=== PATIENT | female | born 1980 | race Caucasian/White ===

== ENCOUNTER 2019-06-05 17:13 | Outpatient (CLI) | payer OTHER, SELFPAY ==
[2019-06-05 18:05] LABS: Basophils Percent Auto 0.3 % (0.2-1.2); Eosinophils Absolute Auto 0.1 K/mm3 (0-0.3); Eosinophils Percent Auto 2.7 % (0-4.4); Hematocrit 40.9 % (37.0-47.0); Hemoglobin 13.4 g/dL (12.0-15.0); Lymphocytes Absolute Auto 1.67 K/mm3 (0.9-3.2); Lymphocytes Percent Auto 44.8 % (18.3-44.2); Mean Corpuscular HGB Conc 32.8 g/dl (32-36); Mean Corpuscular Hemoglobin 29.8 pg (26-34); Mean Corpuscular Volume 90.9 fl (80-100); Mean Platelet Volume 9.8 fl (7.4-10.4); Monocytes Absolute Auto 0.3 K/mm3 (0.1-0.6); Monocytes Percent Auto 8.3 % (2.6-8.5); Neutrophils Absolute Auto 1.6 K/mm3 (1.3-6.7); Neutrophils Percent Auto 43.9 % (45.5-73.1); Platelet Count Result 172 k/mm3 (150-375); Red Cell Distribution Width 12.9 % (11.5-14.5); White Blood Count 3.7 K/mm3 (4.5-10.0)
[2019-06-05 18:14] LABS: Hemoglobin A1C 5.1 % (<5.7)
[2019-06-05 18:23] LABS: Alanine Aminotransferase 18 U/L (4-35); Albumin Level 4.7 g/dL (3.5-5.1); Alkaline Phosphatase 69 U/L (38-126); Aspartate Amino Transferase 27 U/L (14-36); Bilirubin,Total 0.3 mg/dL (0.2-1.3); Blood Urea Nitrogen 11 mg/dL (7-17); Calcium 9.5 mg/dL (8.4-10.2); Carbon Dioxide 28 mmol/L (22-30); Chloride 103 mmol/L (98-107); Estimated Glomerular Filt Rate > 60; Glucose 86 mg/dL (65-105); Potassium 3.2 mmol/L (3.4-5.0); Sodium 142 mmol/L (137-145)
[2019-06-05 18:40] LABS: Thyroid Stimulating Hormone 0.951 uIU/mL (0.465-4.680)
[2019-06-05 20:24] LABS: Free T4 Free Thyroxine 0.81 ng/mL (0.78-2.19)
[2019-06-09 21:21] LABS: LH 8.3 mIU/mL (***); Progesterone 4.7 ng/mL (***); Prolactin 5.8 ng/mL (***)
== END 2019-06-05 17:14 | disposition home or self-care (01) ==
LOC: ANHLAB 17:16
PROVIDERS: Visit Provider Obstetrics & Gynecology
DX: N92.6 Irregular menstruation, unspecified (principal)
CPT/HCPCS: 36415; 80053; 83001; 83002; 83036; 84144; 84146; 84439; 84443; 85025

== ENCOUNTER 2019-08-05 16:48 | Outpatient (CLI) | payer OTHER, SELFPAY | END 2019-08-05 16:49 | disposition home or self-care (01) | PROVIDERS: Visit Provider Obstetrics & Gynecology | DX: N97.9 Female infertility, unspecified (principal) | CPT/HCPCS: 36415; 84144 ==

== ENCOUNTER 2019-09-02 15:58 | Outpatient (CLI) | payer OTHER, SELFPAY ==
[2019-09-06 07:14] LABS: Progesterone 12.6 ng/mL (***)
== END 2019-09-02 15:59 | disposition home or self-care (01) ==
PROVIDERS: Visit Provider Obstetrics & Gynecology
DX: N97.9 Female infertility, unspecified (principal)
CPT/HCPCS: 36415; 84144

== ENCOUNTER 2019-09-28 13:54 | Outpatient (CLI) | payer OTHER, SELFPAY ==
[2019-09-30 12:51] LABS: Progesterone 44.7 ng/mL (***)
== END 2019-09-28 13:55 | disposition home or self-care (01) ==
PROVIDERS: Visit Provider Obstetrics & Gynecology
DX: N97.9 Female infertility, unspecified (principal)
CPT/HCPCS: 36415; 84144

== ENCOUNTER 2019-10-28 15:53 | Outpatient (CLI) | payer OTHER, SELFPAY ==
[2019-11-01 09:28] LABS: Progesterone 48.6 ng/mL (***)
== END 2019-10-28 15:54 | disposition home or self-care (01) ==
PROVIDERS: Visit Provider Obstetrics & Gynecology
DX: N97.9 Female infertility, unspecified (principal)
CPT/HCPCS: 36415; 84144

== ENCOUNTER 2019-11-16 11:14 | Outpatient (CLI) | payer OTHER, SELFPAY ==
--- NOTE | ~2019-11-16 | XR_ITS ---
EXAMINATION: XR hysterosalpingogram INDICATION: Female infertility, unspecified TECHNIQUE: Hysterosalpingogram was performed by Dr. Maxime Bal MD with fluoroscopic guidance. I was present to obtain fluoroscopic images. Fluoroscopy exposure time was 0.4 minutes. The DAP for this procedure was 1.559 Gycm2. FINDINGS: Conference And Event Organiser radiograph demonstrates an unremarkable pelvis. Fluoroscopic images demonstrate a no rmal appearing endometrial cavity which has been cannulated. Upon injection of contrast, both fallop kojo tubes opacify and are normal in appearance. There is free spillage bilaterally. Uterus is withou t evidence of synechia. IMPRESSION: Patent fallopian tubes. Reviewed, dictated and finalized at location A. IMPRESSION: Patent fallopian tubes.
== END 2019-11-16 11:15 | disposition home or self-care (01) ==
PROVIDERS: Visit Provider Obstetrics & Gynecology
DX: N97.9 Female infertility, unspecified (principal)
CPT/HCPCS: 58340; 74740; Q9966

== ENCOUNTER 2019-11-27 15:20 | Outpatient (CLI) | payer OTHER, SELFPAY ==
[2019-11-27 16:01] LABS: Beta HCG Quantitative < 2.39 mIU/ML
[2019-11-30 07:30] LABS: Progesterone 11.7 ng/mL (***)
== END 2019-11-27 15:21 | disposition home or self-care (01) ==
LOC: ANHLAB 15:21
PROVIDERS: Visit Provider Obstetrics & Gynecology
DX: N97.9 Female infertility, unspecified (principal)
CPT/HCPCS: 36415; 84144; 84702

== ENCOUNTER 2019-12-29 08:05 | Outpatient (CLI) | payer OTHER, SELFPAY ==
[2019-12-29 08:48] LABS: Hematocrit 37.3 % (37.0-47.0); Hemoglobin 12.4 g/dL (12.0-15.0); Mean Corpuscular HGB Conc 33.2 g/dl (32-36); Mean Corpuscular Hemoglobin 30.7 pg (26-34); Mean Corpuscular Volume 92.3 fl (80-100); Mean Platelet Volume 9.4 fl (7.4-10.4); Platelet Count Result 169 k/mm3 (150-375); Red Blood Count 4.04 M/mm3 (4.2-5.4); Red Cell Distribution Width 12.3 % (11.5-14.5); White Blood Count 3.8 K/mm3 (4.5-10.0)
[2019-12-29 09:01] LABS: Alanine Aminotransferase 12 U/L (4-35); Albumin Level 4.2 g/dL (3.5-5.1); Alkaline Phosphatase 50 U/L (38-126); Anion Gap 5 mmol/L (8-16); Aspartate Amino Transferase 23 U/L (14-36); Bilirubin,Total 0.5 mg/dL (0.2-1.3); Blood Urea Nitrogen 14 mg/dL (7-17); Calcium 8.7 mg/dL (8.4-10.2); Carbon Dioxide 29 mmol/L (22-30); Chloride 108 mmol/L (98-107); Estimated Glomerular Filt Rate > 60; Glucose 97 mg/dL (65-105); Potassium 3.7 mmol/L (3.4-5.0); Sodium 142 mmol/L (137-145)
[2019-12-29 09:03] LABS: Hemoglobin A1C 4.9 % (<5.7)
[2019-12-29 09:34] LABS: Free T4 Free Thyroxine 0.84 ng/mL (0.78-2.19); Vitamin D 25 Hydroxy 41.2 ng/mL
[2019-12-29 09:41] LABS: HIV 1/2 Ab P24 Ag Result Negative (Negative)
[2019-12-29 09:50] LABS: Hepatitis B Surface Antigen Negative (Negative); Rubella IgG Antibody 10.6 IU/ML
[2019-12-29 10:05] LABS: Hepatitis C Virus Antibody Negative (Negative)
[2019-12-30 07:21] LABS: Rapid Plasma Reagin Non-Reactive (NonReactive)
[2020-01-01 07:31] LABS: Progesterone 0.3 ng/mL (***)
[2020-01-01 07:32] LABS: LH 5.1 mIU/mL (***)
[2020-01-01 11:38] LABS: Rubeola Measles IgG >300.00 AU/mL (>16.49)
[2020-01-02 04:24] LABS: Thyroid Peroxidase Antibodies 15 IU/mL (<9)
[2020-01-05 19:46] LABS: Estradiol, Ultrasensitive 75 pg/mL
== END 2019-12-29 08:06 | disposition home or self-care (01) ==
DX: Z11.3 Encounter for screening for infections with a predominantly sexual mode of transmission (principal); Z11.4 Encounter for screening for human immunodeficiency virus [HIV]; Z11.59 Encounter for screening for other viral diseases; Z01.83 Encounter for blood typing; Z13.0 Encounter for screening for diseases of the blood and blood-forming organs and certain disorders involving the immune mechanism; Z13.29 Encounter for screening for other suspected endocrine disorder; E55.9 Vitamin D deficiency, unspecified; R73.09 Other abnormal glucose
CPT/HCPCS: 36415; 80053; 82306; 82670; 83001; 83002; 83036; 83520; 84144; 84146; 84439; 85027; 86376; 86592; 86703; 86762; 86765; 86787; 86803; 86850; 86900; 86901; 87340; 87491; 87591; G0432

== ENCOUNTER 2020-01-15 17:42 | Outpatient (CLI) | payer OTHER, SELFPAY | END 2020-01-15 17:43 | disposition home or self-care (01) | LOC: ANHLAB 17:46 | DX: Z11.3 Encounter for screening for infections with a predominantly sexual mode of transmission (principal); Z11.4 Encounter for screening for human immunodeficiency virus [HIV]; Z11.59 Encounter for screening for other viral diseases; Z13.228 Encounter for screening for other metabolic disorders; Z13.0 Encounter for screening for diseases of the blood and blood-forming organs and certain disorders involving the immune mechanism; Z13.29 Encounter for screening for other suspected endocrine disorder; Z13.1 Encounter for screening for diabetes mellitus; Z13.21 Encounter for screening for nutritional disorder; E28.9 Ovarian dysfunction, unspecified | CPT/HCPCS: 36415; 84443 ==

== ENCOUNTER 2020-09-28 13:51 | Outpatient (CLI) | payer OTHER, SELFPAY ==
[2020-09-28 14:30] LABS: Basophils Percent Auto 0.2 % (0.2-1.2); Eosinophils Absolute Auto 0.1 K/mm3 (0-0.3); Eosinophils Percent Auto 1.4 % (0-4.4); Hematocrit 39.9 % (37.0-47.0); Hemoglobin 13.7 g/dL (12.0-15.0); Immature Granulocyte Absolute 0.03 K/mm3 (0.00-0.031); Immature Granulocyte Percent A 0.3 % (0-0.5); Lymphocytes Absolute Auto 1.53 K/mm3 (0.9-3.2); Lymphocytes Percent Auto 17.8 % (18.3-44.2); Mean Corpuscular HGB Conc 34.3 g/dl (32-36); Mean Corpuscular Hemoglobin 30.4 pg (26-34); Mean Corpuscular Volume 88.5 fl (80-100); Monocytes Absolute Auto 0.5 K/mm3 (0.1-0.6); Monocytes Percent Auto 5.8 % (2.6-8.5); Neutrophils Absolute Auto 6.4 K/mm3 (1.3-6.7); Neutrophils Percent Auto 74.5 % (45.5-73.1); Platelet Count Result 224 k/mm3 (150-375); Red Blood Count 4.51 M/mm3 (4.2-5.4); Red Cell Distribution Width 13.6 % (11.5-14.5); White Blood Count 8.6 K/mm3 (4.5-10.0)
[2020-09-28 14:38] LABS: Add Urine Microscopic? YES; Appearance Urine Cloudy (Clear); Bacteria Urine 1+ /hpf; Bilirubin Urine Negative (Negative); Blood Urine Negative (Negative); Color Urine Yellow (Yellow); Glucose Urine UA Negative (Negative); Ketones Urine Negative (Negative); Leukocyte Esterase Ur 1+ LEU/UL (NEGATIVE); Mucus Urine Moderate /lpf; Nitrate Urine Negative (Negative); Protein Urine Negative (Negative); Specific Grav Ur 1.015 (1.001-1.035); Squamous Epithelial Cell Urine Few /hpf (Few); Urobilinogen Urine Negative mg/dL (<2.0); WBC Urine 0-3 /hpf (0-3)
[2020-09-28 15:10] LABS: Thyroid Stimulating Hormone 0.935 uIU/mL (0.465-4.680)
[2020-09-28 15:21] LABS: HIV 1/2 Ab P24 Ag Result Negative (Negative)
[2020-09-28 15:51] LABS: Vitamin D 25 Hydroxy 53.9 ng/mL
[2020-09-28 16:18] LABS: Hepatitis B Surface Antigen Negative (Negative); Rubella IgG Antibody 11.3 IU/ML
[2020-09-28 16:31] LABS: Hepatitis C Virus Antibody Negative (Negative)
[2020-09-29 09:22] LABS: Rapid Plasma Reagin Non-Reactive (NonReactive)
[2020-10-06 20:09] LABS: Hematocrit 39.8 % (35.0-45.0); Hemoglobin 13.4 g/dL (11.7-15.5); MCV 92.1 fL (80.0-100.0); RDW 15.1 % (11.0-15.0); Red Blood Cell Count 4.32 Mill/uL (3.80-5.10)
== END 2020-09-28 13:52 | disposition home or self-care (01) ==
LOC: ANHLAB 13:54
PROVIDERS: Visit Provider Obstetrics & Gynecology
DX: Z34.90 Encounter for supervision of normal pregnancy, unspecified, unspecified trimester (principal)
CPT/HCPCS: 36415; 81001; 82306; 83021; 84436; 84443; 85025; 86592; 86703; 86762; 86787; 86803; 86850; 86900; 86901; 87086; 87088; 87340; G0432

== ENCOUNTER 2021-02-13 12:58 | Observation (INO) | payer OTHER, SELFPAY ==
--- NOTE | 2021-02-13 13:20 | OBADM ---
This patient, Caron Myles, admitted to the OB room OB Post 116 for observation. Patient/family oriented to hospital policies and general routines including ID bracelet, bed and alarms, visiting hours, pain management, procedures, bathroom and other care routines, personal items, smoking policy, room service/diet, and visiting hours. Patient/Family are encouraged to report perceived risks to care and to ask questions if they do not understand what they are told or what they should do.
[2021-02-13 13:49] LABS: Add Urine Microscopic? YES; Appearance Urine Cloudy (Clear); Bacteria Urine Trace /hpf; Bilirubin Urine Negative (Negative); Blood Urine Negative (Negative); Color Urine Yellow (Yellow); Glucose Urine UA Negative (Negative); Ketones Urine Negative (Negative); Leukocyte Esterase Ur Negative LEU/UL (NEGATIVE); Mucus Urine Rare /lpf; Nitrate Urine Negative (Negative); Protein Urine Negative (Negative); Specific Grav Ur 1.017 (1.001-1.035); Squamous Epithelial Cell Urine Few /hpf (Few); Urobilinogen Urine Negative mg/dL (<2.0)
[2021-02-13 14:16] VITALS: BP 95/61; PULSE 87
[2021-02-13 14:30] VITALS: BP 99/61; PULSE 90
--- NOTE | 2021-03-10 08:37 | P.PNOB_ITS ---
OB - Triage/Final Diagnosis Visit Information Comments/Additional reasons for admission: I have assessed the risk for this patient, Caron Myles, and determined that she would benefit from observation care. Evaluation Laboratory results: Laboratory Tests 02/13/21 13:20 Urine Color Yellow Urine Appearance Cloudy H Urine pH 6.0 Ur Specific [place] 1.017 Urine Protein Negative Urine Glucose (UA) Negative Urine Ketones Negative Ur Blood (Man) Negative Urine Nitrate Negative Urine Bilirubin Negative Urine Urobilinogen Negative Ur Leukocyte Esterase Negative Urine RBC 3-5 H Urine WBC 4-6 H Ur Squamous Epith Cells Few Urine Bacteria Trace Urine Mucus Rare Final Diagnosis (1) Spotting during : Code(s): O26.859 - Spotting complicating , unspecified trimester Status: Acute
== END 2021-02-13 14:58 | disposition home or self-care (01) ==
PROVIDERS: Admitting Provider Obstetrics & Gynecology; Visit Provider Student in an Organized Health Care Education/Training Program
DX: O26.859 Spotting complicating pregnancy, unspecified trimester (principal); Z3A.00 Weeks of gestation of pregnancy not specified
CPT/HCPCS: 81001; 87086; G0378; G0379

== ENCOUNTER 2021-04-11 09:31 | Outpatient (RCR) | payer OTHER, SELFPAY ==
[2021-04-06 10:34] VITALS: BP 105/55; PULSE 79
--- NOTE | ~2021-04-11 | US_ITS ---
EXAMINATION: US OB limited DATE: 04/06/2021 10:33 INDICATION: Advanced maternal age. Hypothyroidism. Assess amniotic fluid index during third trimester . TECHNIQUE: Real-time ultrasound of the pelvis was performed. The interpreting radiologist was not pre sent for the study. COMPARISON: None. FINDINGS: There is a single living fetus in vertex presentation. The placenta is anterior. heart rate is 131 beats per minute (bpm). The amniotic fluid index is 16.4 cm, which is normal (5th%-95%: 7.3-24.4 cm at 37 weeks estimated gestational age). IMPRESSION: 1. Single living fetus in vertex presentation with heart rate of 131 bpm. 2. Normal amniotic fluid index of 16.4 cm. Reviewed, dictated and finalized at location B. E FINISHER IMPRESSION: 1. Single living fetus in vertex presentation with heart rate of 131 bpm . 2. Normal amniotic fluid index of 16.4 cm.
--- NOTE | ~2021-04-11 | US_ITS ---
EXAMINATION: US OB limited DATE: 04/11/2021 10:39 INDICATION: Preeclampsia. Third trimester. TECHNIQUE: Real-time ultrasound of the pelvis was performed. COMPARISON: Ultrasound 04/06/2021 FINDINGS: There is a single fetus in vertex presentation. The placenta is anterior. heart rate is 139 be ats per minute (bpm). The amniotic fluid index is 18.8 cm, which is normal. IMPRESSION: 1. Single living fetus in vertex presentation. 2. Normal amniotic fluid index. Reviewed, dictated and finalized at location B. MOGRAPH RECORDER
[2021-04-11 11:02] VITALS: PULSE 106
== END 2021-05-05 20:38 | disposition home or self-care (01) ==
LOC: ANHOBOP 09:31
PROVIDERS: Visit Provider Obstetrics & Gynecology
DX: O09.513 Supervision of elderly primigravida, third trimester (principal); O99.283 Endocrine, nutritional and metabolic diseases complicating pregnancy, third trimester; E03.9 Hypothyroidism, unspecified; O09.813 Supervision of pregnancy resulting from assisted reproductive technology, third trimester; Z3A.37 37 weeks gestation of pregnancy; Z3A.38 38 weeks gestation of pregnancy
CPT/HCPCS: 59025; 76815

== ENCOUNTER 2021-04-16 06:23 | Inpatient (IN) | payer OTHER, SELFPAY ==
[2021-04-16] VITALS (105 sets, daily range): BP systolic 82–129; BP diastolic 45–93; PULSE 59–165; RESP 18; TEMP 36.6–36.8; O2SAT 87–100; BMI 24.1
--- NOTE | 2021-04-16 06:23 | LDADM ---
This patient, Caron Myles, was admitted to Labor/Delivery/Recovery 105 on 04/16/21 at 06:23. Plans for labor, pain management and were discussed with patient. Patient/family oriented to hospital policies and general routines including ID bracelet, bed and alarms, visiting hours, pain management, procedures, bathroom and other care routines, personal items, smoking policy, room service/diet and guest tray routines, security routines, and visiting hours. Patient/Family are encouraged to report perceived risks to care and to ask questions if they do not understand what they are told or what they should do. See OBIX for further documentation.
[2021-04-16] MEDS: LACTATED RINGERS 1,000 ML 125 ML IV CONT ×3 (06:48→12:09)
[2021-04-16 07:00] LABS: Basophils Absolute Auto 0.1 K/mm3 (0.0-0.1); Basophils Percent Auto 0.3 % (0.2-1.2); Eosinophils Absolute Auto 0.1 K/mm3 (0-0.3); Eosinophils Percent Auto 0.4 % (0-4.4); Hematocrit 35.9 % (37.0-47.0); Hemoglobin 12.1 g/dL (12.0-15.0); Immature Granulocyte Absolute 0.29 K/mm3 (0.00-0.031); Immature Granulocyte Percent A 1.9 % (0-0.5); Lymphocytes Absolute Auto 2.35 K/mm3 (0.9-3.2); Lymphocytes Percent Auto 15.5 % (18.3-44.2); Mean Corpuscular HGB Conc 33.7 g/dl (32-36); Mean Corpuscular Hemoglobin 30.5 pg (26-34); Mean Corpuscular Volume 90.4 fl (80-100); Mean Platelet Volume 9.1 fl (7.4-10.4); Monocytes Percent Auto 6.4 % (2.6-8.5); Neutrophils Absolute Auto 11.4 K/mm3 (1.3-6.7); Neutrophils Percent Auto 75.5 % (45.5-73.1); Platelet Count Result 325 k/mm3 (150-375); Red Blood Count 3.97 M/mm3 (4.2-5.4); Red Cell Distribution Width 14.1 % (11.5-14.5); White Blood Count 15.2 K/mm3 (4.5-10.0)
--- NOTE | 2021-04-16 07:31 | WPDANESEPP ---
Anes - Eval Pre Procedure Procedure: Labor Epidural Date/Time: 04/16/21 07:31 Surgeon: Valeriano/Brice Preop Diagnosis: Labor Pain Pre Op Diagnosis: Contractions Patient Data Age: 40 Gender: F Height: 1.7 m Weight: 70 kg Last Vital Signs Pulse 92 04/16/21 07:30 BP 124/69 04/16/21 07:30 Pulse Ox 100 04/16/21 07:27 Allergies Allergy/AdvReac Type Severity Reaction Status Date / Time No Known Allergies Allergy Verified 04/11/21 08:48 Home Medications Medication Instructions Recorded Confirmed Type vits 75-iron 28 mg-folic pkg PO 05/25/19 04/06/21 History acid 800 mcg-omega-3 oral combo pack cholecalciferol (vitamin D3) 50 50 mcg PO DAILY 09/27/20 04/06/21 History mcg (2,000 unit) capsule levothyroxine 25 mcg capsule 25 mcg PO DAILY #90 cap 11/29/20 04/06/21 Rx Laboratory Tests 04/16/21 04/16/21 06:54 06:54 WBC 15.2 K/mm3 H K/mm3 (4.5-10.0) RBC 3.97 M/mm3 L M/mm3 (4.2-5.4) Hgb 12.1 g/dL g/dL (12.0-15.0) Hct 35.9 % L % (37.0-47.0) MCV 90.4 fl fl (80-100) MCH 30.5 pg pg (26-34) MCHC 33.7 g/dl g/dl (32-36) RDW 14.1 % % (11.5-14.5) Plt Count 325 k/mm3 k/mm3 (150-375) MPV 9.1 fl fl (7.4-10.4) Immature Gran % (Auto) 1.9 % H % (0-0.5) Neut % (Auto) 75.5 % H % (45.5-73.1) Lymph % (Auto) 15.5 % L % (18.3-44.2) Curry % (Auto) 6.4 % % (2.6-8.5) Eos % (Auto) 0.4 % % (0-4.4) Baso % (Auto) 0.3 % % (0.2-1.2) Lymph # (Auto) 2.35 K/mm3 K/mm3 (0.9-3.2) Curry # (Auto) 1.0 K/mm3 H K/mm3 (0.1-0.6) Eos # (Auto) 0.1 K/mm3 K/mm3 (0-0.3) Baso # (Auto) 0.1 K/mm3 K/mm3 (0.0-0.1) Abs Immat Gran (auto) 0.29 K/mm3 H K/mm3 (0.00-0.031) Absolute Neuts (auto) 11.4 K/mm3 H K/mm3 (1.3-6.7) Absolute Nucleated RBC 0.0 K/mm3 K/mm3 (0.0-0.012) Nucleated RBC % 0.0 % % (0.0-0.2) RPR Pending : gestational age () Patient hx anesthesia problems: none Family hx anesthesia problems: none Results Review: All pre-operative results and documents have been reviewed as part of the pre-operative evaluation. [facility] Past Medical History Medical History Infertility Migraines Missed x1 Surgical History Surgical History [place] teeth removed Family History Family History Grandparent Family history of malignant neoplasm of breast Mother Family history of malignant neoplasm of breast in first degree relative Other Family history of malignant neoplasm of ovary Social History Social History Smoking status: Never smoker Alcohol intake: never Substance use: unknown Spiritual care concerns: No Exam Day of Procedure 04/16/21 07:31 Patient weight: thin Heart: regular rate and rhythm Lungs: normal air movement Airway: Mallampati scale class II Neurological: alert and oriented
[2021-04-16] MEDS: ONDANSETRON INJ 4 MG/2 ML VIAL IV PUSH (08:16)
--- NOTE | 2021-04-16 08:53 | PM.IMHP ---
H&P: HPI History of Present Illness Date/Time: 04/16/21 08:53 Patient is a 40yo currently 39w2d gestation with YOU 04/21/21. This is an IUI conception. Patient presented to L&D with complaints of contractions. She was noted to be 5cm dilated at time of presentation and decision was made to admit patient to L&D in labor. She denies any leakage of fluid or vaginal bleeding. Reports good movement. Chief Complaint: IUP at 39w2d Labor Review of Systems Review of Systems: All systems reviewed & are unremarkable except as noted in HPI and below Constitutional: Constitutional: Reports as per HPI, Reports no additional constitutional complaints, Denies chills, Denies fever(s), Denies headache(s) and Denies night sweats Eyes: Eyes: Reports as per HPI and Reports no additional eye complaints ENT: Reports system reviewed and no additional complaints, except as documented, Reports as per HPI, Reports Normal hearing present and Denies headache(s) Cardiovascular: Cardiovascular: Reports as per HPI, Reports no additional cardiovascular complaints, Denies chest pain and Denies dyspnea Respiratory: Respiratory: Reports as per HPI, Reports no additional respiratory complaints, Denies cough and Denies dyspnea Gastrointestinal: Gastrointestinal: Reports as per HPI, Reports no additional gastrointestinal complaints, Denies abdominal pain, Denies change in bowel habits, Denies change in stool character, Denies nausea and Denies vomiting Genitourinary: Genitourinary: Reports no additional female genitourinary complaints, Reports as per HPI, Denies abnormal vaginal bleeding, Denies genital lesions, Denies hot flashes, Denies dyspareunia, Denies pelvic pain, Denies sexual dysfunction, Denies urinary incontinence, Denies vaginal discharge, Denies vaginal dryness and Denies vaginal odor Musculoskeletal: Musculoskeletal: Reports no additional musculoskeletal complaints and Reports as per HPI Integumentary/Breasts: Skin/Breast: Reports system reviewed and no additional complaints, except as docu, Reports as per HPI, Denies breast pain and Denies nipple discharge Neurologic: Reports system reviewed and no additional complaints, except as documented, Reports as per HPI, Reports Normal hearing present and Denies headache(s) Psychiatric: Psychiatric: Reports no additional psychiatric complaints, Reports as per HPI, Denies anxiety and Denies depression Endocrine: Endocrine: Reports no additional endocrine complaints and Reports as per HPI Hematologic/Lymphatic: Hematologic/Lymphatic: Reports no additional hematologic/lymphatic complaints and Reports as per HPI Allergic/Immunologic: Allergic/Immunologic: Reports no additional allergic/immunologic complaints and Reports as per HPI PMFSH Past Medical History Medical History Infertility Migraines Missed x1 Surgical History Surgical History [place] teeth removed Family History Family History Grandparent Family history of malignant neoplasm of breast Mother Family history of malignant neoplasm of breast in first degree relative Other Family history of malignant neoplasm of ovary Social History Social History Smoking status: Never smoker Alcohol intake: never Substance use: unknown Spiritual care concerns: No Meds Home Medications and Allergies Home Medications Medication Instructions Recorded Confirmed Type vits 75-iron 28 mg-folic 1 pkg PO DAILY 05/25/19 04/16/21 History acid 800 mcg-omega-3 oral combo pack cholecalciferol (vitamin D3) 50 50 mcg PO DAILY 09/27/20 04/06/21 History mcg (2,000 unit) capsule levothyroxine 25 mcg capsule 25 mcg PO DAILY #90 cap 11/29/20 04/16/21 Rx Allergies Allergy/AdvReac Type Severity Reaction Status Da
--- NOTE | 2021-04-16 09:08 | WPDHPUPDATE1 ---
History and Physical Update Update Date/Time: 04/16/21 09:08 History and Physical has been reviewed, including an updated exam of the patient. There are NO changes in the patient's condition. Risks, benefits, and alternatives have been discussed and questions answered. Patient agrees to proceed with procedure.
[2021-04-16] MEDS: OXYTOCIN 30 UNITS/NS 500 ML 30 UNITS/500 ML BAG 999 UNITS IV CONT (12:09)
[2021-04-16] MEDS: OXYTOCIN 30 UNITS/NS 500 ML 30 UNITS/500 ML BAG 125 UNITS IV CONT (12:53)
--- NOTE | 2021-04-16 13:07 | P.PCNOB_ITS ---
OB - Delivery Note Procedure Delivery date: 04/16/21 Procedure: Spontaneous vaginal delivery. Intrapartal events: None and Deceleration Induction method: none Delivery augmentation: rupture of membranes and pitocin Delivery monitor: external FHT Route of delivery: Laceration Description: Perineal - 2nd Degree Delivery repair: vicryl (3.0 vicryl) Specimen: No Quantitative Blood Loss (ml): 250 Anesthesia type: Epidural Disposition: floor Complications: None Narrative: Patient admitted in active labor. She did not have significant cervical change in over three hours and had augmentation with AROM clear fluid. She progressed to complete. During second stage of labor contractions pattern was dysfunctional and palpated mild. Pitocin augmentation was started, this did improve the contraction pattern. She did have a terminal bradycardic episode lasting 6 minutes, she pushed and 's head was delivered. Tight nuchal cord was surgically reduced at that time the shoulders were spontaneous delivering. The rest of the was delivered. The infant was placed on maternal abdomen vigorously crying. Cord blood and cord gases were obtained. Placenta delivered spontaneously and intact with trainling membranes. Small amount of membranes retrieved from lower uterine segment. She sustained a second degree right perineal laceration repaired with 3.0 vicryl. ERBL 250cc. Sponge count correct. Patient tolerated procedure well. [place] Baby Date of : 04/16/21 Time of : 12:41 Weeks of gestation at delivery: 39 gender: Male presentation: vertex position: Left Occiput Anterior Placenta delivery description: Spontaneous cord vessel description: Nuchal Cord, Tight and Reduced (surgically) score one minute: 8 score five minutes: 9
--- NOTE | 2021-04-16 17:13 | OBPPTRN ---
Patient transferred to post room # 281 via wheelchair. Leida Fontaine used to transfer pt from wheelchair to bed. Support person present. Oriented to unit, room, information board, rooming in, admission packet and security measures. PT introductions made and plan of care discussed. PT received such instructions per one to one discussion mom baby care guide book and demonstrations this shift. PT and spouse both recipients of such instructions and no barriers to learning identified at this time. Patient verbalizes understanding.
[2021-04-16] MEDS: IBUPROFEN 600 MG TABLET PO (20:19)
[2021-04-17] MEDS: IBUPROFEN 600 MG TABLET PO ×3 (02:40→15:00)
[2021-04-17 04:38] LABS: Hematocrit 31.6 % (37.0-47.0); Hemoglobin 10.6 g/dL (12.0-15.0)
[2021-04-17 07:30] VITALS: BP 89/41; PULSE 59; RESP 18; TEMP 36.9; O2SAT 98
[2021-04-17] MEDS: LEVOTHYROXINE SODIUM 25 MCG TABLET PO (08:38)
[2021-04-17] MEDS: MULTIVIT/MIN/PREN/FOL AC/IRON TABLET 1 TAB PO (08:38)
--- NOTE | 2021-04-17 10:21 | PM.OBPNVD ---
OB - PN: Subj Subjective Date/time seen: 04/17/21 10:21 Patient comments: pain well controlled, tolerating diet and other (Decreasing lochia.) baby status: doing well and nursing well [place] feeding status: exclusively breast feeding OB - PN: Obj Data Labs CBC & Chem 7: 04/17/21 02:45 Labs: Laboratory Results - last 24 hr 04/17/21 02:45 Hgb 10.6 L Hct 31.6 L OB - PN A/P Plan day: 1 Plan: routine care Comments: Patient doing well. Continue routine care. Time Spent With Patient Time: Total time spent is greater than 50% in coordination of care (as documented) at patient's floor/unit and/or counseling patient: Exam Psych: Affect: normal affect Other: Abd: fundus firm below umbilicus, nontender Perineum: healing Ext: nontender
--- NOTE | 2021-04-17 11:17 | PC.NURSE ---
904 - Consulted with parents, reviewed infant feeding cues, frequencies, duration of feedings, feeding elimination flow sheet, and signs of adequate intake. Demonstrated stimulation techniques to wake for feeding using the skin to skin technique. Assisted with infant to breast. Reviewed positioning/alignment, holding breast and asymmetrical latch on. was able to latch correctly on the left breast in cross cradle position. nursed eagerly, with steady draws and occasional swallowing noted. Reviewed signs of a correct latch, effective nursing and suck swallow ratio. was able to maintain latch without discomfort to mother. Nipple care, effective latching and hand expression using visuals of handouts, mom/baby guide and tools. After about ten minutes detached and effectively breastfed on the right breast in cross cradle position. Instructed mother to call out for RN assistance if she is unable to latch infant for feeding or she has discomfort with nursing. Instructed feeding should be initiated when feeding cues are seen or two - three hours from the start of the last feeding. Father is engaged in learning, supporting and mother voiced understanding of information shared. Reported to primary RN.
[2021-04-17 12:00] LABS: Rapid Plasma Reagin Non-Reactive (NonReactive)
--- NOTE | 2021-04-17 14:06 | PC.NURSE ---
1305 -Consulted with patient who is holding newly circumcised skin to skin. Sleepy has been given acetaminophen and is showing no feeding cues. Mom demonstrates knowledge of stimulation techniques to wake for feeding. Reviewed positioning/alignment, holding breast and asymmetrical latch on. Encouraged parents to call out for RN assistance if she is unable to latch infant for feeding or if she has discomfort with nursing. Reviewed watching for feeding cues, hand expression, placing colostrum under infants tongue and offer the breast when feeding cues are visualized. Mother voiced understanding of information shared. Reported to RN.
--- NOTE | 2021-04-17 15:22 | WPDANLDPN2 ---
Anes-Prog Note L&D Date/Time: 04/17/21 15:22 Comfortable throughout: labor and delivery Neuraxial method: epidural Epidural/Spinal procedure site: clean & non-tender Neuro status: Neuro function grossly intact. Cardiovascular status: normal Respiratory status: normal Airway patency: baseline Mental status: baseline Post-Op hydration status: normal Vital Signs: Last Vital Signs Temp 36.9 C 04/17/21 07:30 Pulse 59 L 04/17/21 07:30 Resp 18 04/17/21 07:30 BP 89/41 L 04/17/21 07:30 Pulse Ox 98 04/17/21 07:30 Pain score (VAS): 0 I/O: Intake & Output 04/16/21 04/17/21 04/17/21 23:59 07:59 15:59 Output Total 150 Balance -150 Post-procedural complaints: none Patient feedback: Patient satisfied with anesthetic care.
[2021-04-17 18:30] VITALS: BP 94/55; PULSE 70; RESP 16; TEMP 36.5
[2021-04-18] MEDS: IBUPROFEN 600 MG TABLET PO ×3 (00:10→13:48)
[2021-04-18] MEDS: LEVOTHYROXINE SODIUM 25 MCG TABLET PO (07:48)
[2021-04-18 08:35] VITALS: BP 96/54; PULSE 69; RESP 18; TEMP 36.8; O2SAT 99
--- NOTE | 2021-04-18 08:55 | PC.NURSE ---
[id number] Consulted with patient. Mother states her nipples are a bit tender today, she is tired and tearful. Reviewed undressing and placing baby skin to skin. Reviewed positioning/alignment, holding breast and asymmetrical latch on. Mom verbalizes understanding of infant feeding cues, frequencies, duration of feedings, feeding elimination flow sheet, and signs of adequate intake. Demonstrated stimulation techniques to wake infant for feeding. Encouraged mother to bring infant to the right breast in football position. was able to latch correctly without pain. Mother states there was some tenderness at first, then subsided. Infant nursed eagerly, with steady draws and occasional swallowing heard. Reviewed signs of a correct latch, effective nursing and suck swallow ratio. was able to maintain latch without discomfort to mother. Nipple care reviewed. Infant self detached, burped and mom placed skin to skin. Encouraged mother to bring to the left breast in football position. Infant was able to latch correctly without pain. Infant nursed eagerly, with steady draws and occasional swallowing heard. Discussed with mom how the infant opens 140 degrees but brings the tongue up. Mom demonstrates understanding of detaching for a better latch. Mother states there was some tenderness at first, then subsided. Parents are aware to call out for RN assistance if is unable to latch or she has discomfort with nursing. Reviewed feeding infant when feeding cues are visualized or approximately every 2-3 hours. has had 8-12 feedings in the past 24 hours, and is currently meeting outcomes for weight, output, jaundice and feeding frequencies. Mother states she feels confident to continue effective and exclusively at home. Reviewed transition to breast milk, signs of adequate intake, and engorgement/relief. Instructed to call ICP if intake/output less than required or skips two feedings in a row. Reviewed regular medications mother is taking. Information provided per [employer]. Reviewed community resources and outpatient services in the Mom/Baby guide and phone number on the feeding sheet. Mother has no further questions at this time. Mother voiced understanding of information shared. Reported to primary RN.
--- NOTE | 2021-04-18 09:40 | PM.OBDSVD ---
DS: Admitting Diagnosis Discharge Date 04/18/2021 Admitting Diagnosis 04/16/2021 DS: Discharge Diagnosis Discharge Diagnosis (1) Delivery normal: Code(s): O80 - Encounter for full-term uncomplicated delivery Status: Acute (2) Hypothyroidism affecting : Code(s): O99.280 - Endocrine, nutritional and metabolic diseases complicating , unspecified trimester; E03.9 - Hypothyroidism, unspecified Status: Acute OB - DS: Summary Hospital Course Hospital Course: patient was admitted on 04/16/2021 in active labor. Her labor course did retract she had assisted rupture of membranes which was clear. She continued to progress in labor. She dilated to complete her contraction pattern did decrease in the contractions were mild she was started on a small dose of Pitocin and had had a vaginal delivery. She did sustain a second-degree perineal laceration which was repaired. Post patient did well. She was restarted on the levothyroxine. She had adequate pain control. She was breast-feeding well. Ambulating well. She had adequate pain control with Tylenol and Motrin. She is discharged home on day 2. Discharge instructions discussed. OB Procedures : Ultrasound OB Procedures Intrapartum: Spontaneous Vag Delivery OB Procedures: : None Peripartum Data Delivery Method: Natural Vaginal Laceration Description: Perineal - 2nd Degree complications: none Status at Discharge Cognitive/behavioral status at discharge: Normal. Functional status at discharge: independent ambulation Time Spent with Patient Time attestation: Total time spent providing and/or coordinating discharge services: Exam Const: General: cooperative Orientation/consciousness: oriented to person, oriented to place and oriented to time HENMT: General nose exam: Normal external nose present Eyes: General: appearance normal, both eyes and all related structures Resp: Effort & Inspection: normal respiratory effort GI: Inspection: normal to inspection : External Female Exam: normal external appearance Other: Perineum healing. Skin: General skin exam: normal color Neuro: General: oriented to person, oriented to place and oriented to time Extrem: General: normal to inspection and no calf tenderness Psych: Appearance: grossly normal Mental Status: mental status grossly normal DS: Data Data Completed and Pending Labs on day of discharge: Labs from last 24 hours 04/16/21 06:54 RPR Non-reactive Discharge Plan Discharge Attending physician on discharge: Maxime Bal Consulting providers: Candida Jordan Discharging Clinician: Maxime Bal Anticipated Discharge Date/Time: 04/18/21 09:36 Patient Disposition: Home, Self-Care Activity: may shower, no straining and pelvic rest Diet: regular Discharge Instructions: Pelvic rest for 4-6 weeks. May take over the counter Ibuprofen or Tylenol for pain. Call if saturating more than a pad an hour, leg redness, pain and swelling, temperature>100.4. No strenuous activity. Recommend Colace 50 -100mg once a day. Continue Levothyroxine daily. Patient Instructions: Antibiotic Form Stand Alone Forms: General Discharge Information Follow-up/Referrals: Maxime Bal MD [Physician] - 2 Weeks (Call for appointment) Discharge Medications: New levothyroxine 25 mcg Tablet 25 mcg PO DAILY@0630 Qty: 30 RF: 0 Continued One A Day Women's DHA 28 mg iron- 800 mcg combo pack 1 pkg PO DAILY RF: 0 cholecalciferol (vitamin D3) 50 mcg (2,000 unit) capsule 50 mcg PO DAILY RF: 0 levothyroxine 25 mcg capsule 25 mcg PO DAILY Qty: 90 RF: 1 Date of admission: 04/16/21 06:23 Primary Care Provider: PHYSICIAN,[employer] TRAINER Admitting Provider: Maxime Bal Attending physician on admission: Maxime Bal Condition: Stable
--- NOTE | 2021-04-18 09:48 | PM.OBPNVD ---
OB - PN: Subj Subjective Date/time seen: 04/18/21 09:48 Patient comments: pain well controlled, tolerating diet and other (Decreasing lochia.) baby status: doing well and nursing well [place] feeding status: exclusively breast feeding OB - PN: Obj Data Labs CBC & Chem 7: 04/17/21 02:45 Labs: Laboratory Results - last 24 hr 04/16/21 06:54 RPR Non-reactive OB - PN A/P Plan day: 2 Plan: discharge home and other Comments: Patient doing well. Follow up 4-6 weeks. Discharge instructions provided. Time Spent With Patient Time: Total time spent is greater than 50% in coordination of care (as documented) at patient's floor/unit and/or counseling patient: Time with patient: less than 15 minutes Exam Psych: Affect: normal affect Other: Abd: fundus firm below umbilicus, nontender Perineum: healing Ext: nontender
--- NOTE | 2021-04-18 11:49 | PC.NURSE ---
Patient instructed to view the discharge video Mother & Baby Care, The First Two Weeks online. Patient was given the opportunity and encouraged to ask questions. Patient verbalized understanding of information shared and has been given the mother/baby guide for home reference.
--- NOTE | 2021-04-18 12:42 | PC.NURSE ---
1130 - Mother verbalizes she is able to independently latch with appropriate positioning/alignment. She states slight nipple discomfort that is improved with a more effective latch, is feeding as required and waking infant to feed if needed. Infant is currently meeting outcomes for weight, output, jaundice and feeding frequencies. Mother states she does not require feeding assist/education at this time. Reviewed resources in the Mom/Baby guide. Instructed mother to call out for future feedings if assistance is needed.
[2021-04-19 09:52] VITALS: BP 107/61; PULSE 81; RESP 16; TEMP 37.1; O2SAT 99
== END 2021-04-18 13:52 | disposition home or self-care (01) | DRG 807 ==
LOC: ANHLDR 06:48 → ANHOB2 17:20
PROVIDERS: Admitting Provider Student in an Organized Health Care Education/Training Program; Visit Provider Obstetrics & Gynecology
DX: O76 Abnormality in fetal heart rate and rhythm complicating labor and delivery (principal); Z37.0 Single live birth; O99.892 Other specified diseases and conditions complicating childbirth; R00.1 Bradycardia, unspecified; O70.1 Second degree perineal laceration during delivery; O69.1XX0 Labor and delivery complicated by cord around neck, with compression, not applicable or unspecified; O99.284 Endocrine, nutritional and metabolic diseases complicating childbirth; E03.9 Hypothyroidism, unspecified; Z3A.39 39 weeks gestation of pregnancy
CPT/HCPCS: 36415; 85014; 85018; 85025; 86592; 86850; 86900; 86901; A9270; J2405; J2590; J2795; J7120

== ENCOUNTER 2023-08-08 17:26 | Emergency (ER) | payer OTHER, SELFPAY ==
--- NOTE | ~2023-08-08 | CT_ITS ---
EXAMINATION: CT brain wo con DATE: 08/08/2023 18:01 INDICATION: Headache TECHNIQUE: Computed tomography (CT) of the head was performed without intravenous contrast. Sagittal and coronal reconstructions were performed. The mA was adjusted according to patient size. Iterative reconstruction technique was employed. The dose-length product was 605.33 mGy-cm. COMPARISON: None FINDINGS: No acute intracranial hemorrhage, acute infarction or abnormal extra axial fluid collection. Ventricl es are normal and symmetric. No mass/mass effect. There is a small amount of posterior layering fluid in the bilateral maxillary sinuses suggesting acute sinusitis. The orbits and mastoid air cells are normal. IMPRESSION: 1. No acute intracranial process. 2. Small amount of dependently layering fluid in the bilateral maxillary sinuses which can be seen wi th acute sinusitis. Reviewed, dictated and finalized at location A. IMPRESSION: 1. No acute intracranial process. 2. Small amount of dependently layering fluid in the bilateral maxillary sinuse s which can be seen with acute sinusitis.
--- NOTE | ~2023-08-08 | CT_ITS ---
EXAMINATION: CT cervical spine wo con DATE: 08/08/2023 18:01 INDICATION: Headache, neck pain, vomiting and dizziness after doing somersault. TECHNIQUE: Computed tomography (CT) of the cervical spine was performed without intravenous contrast. Automated exposure control and iterative reconstruction technique were employed. The dose-length pro duct was 605.33 mGy-cm. COMPARISON: None FINDINGS: 15 degrees cervical levocurvature and partially visualized upper thoracic dextrocurvature. Sagittal a lignment is normal. Normal atlantoaxial articulation. Cervical vertebral body and disc heights are no rmal. No fracture. No central canal stenosis. Moderate facet osteoarthritis on the right at C2-C3 and C4-C5 and on the left at C5-C6 through C7-T1. Mild facet osteoarthritis the remaining cervical level s. No neural foraminal stenosis. Cervical soft tissues are unremarkable. Minimal biapical pleural-par enchymal scarring. IMPRESSION: 1. Mild cervical levocurvature with mild uncovertebral and mild to moderate facet osteoarthritis. No acute osseous abnormality. Reviewed, dictated and finalized at location A. IMPRESSION: 1. Mild cervical levocurvature with mild uncovertebral and mild to moderate fac et osteoarthritis. No acute osseous abnormality.
[2023-08-08 17:34] VITALS: BP 89/63; PULSE 72; RESP 18; TEMP 36.7; O2SAT 100
--- NOTE | 2023-08-08 17:38 | ED.GENADULT ---
HPI - General Adult General Chief complaint: Neck Pain/Injury <Estefani Valera July, - Last Filed: 08/08/23 17:41> Stated complaint: neck pain, headache, vomiting covid positive. <Estefani Valera July, - Last Filed: 08/08/23 17:41> Time Seen by Provider: 08/08/23 17:38 <Estefani Valera July,N - Last Filed: 08/08/23 17:41> Focused HPI: Caron Myles is a 42 y/o female who presents today with reports of having a slight cough/ feeling tired for several days she went to an 2 days ago and tested positive for COVID. She states that last night she did a somersault for her 2 yr old and with the pressure on her head she immediately felt pain to the base of her head and neck and after the somersault she says her vision was blurry she had neck pain and she felt a little out of it,- that did not last long but still had the neck pain. SHe then had a BARROW last night and today has continued BARROW/ neck pain and has vomited 3 times. SHe still feels nauseated and unsure if it is the covid related or to the somersault. GENERAL: Well-appearing, well-nourished, and in no acute distress. HEAD: Normocephalic, atraumatic. CHEST: Clear to auscultation. ?No respiratory distress. HEART: Regular rate and rhythm.? NEURO: ?Alert and oriented x3. Patient screened in triage and initial orders placed.? ?Additional care and disposition to be based upon?diagnostic testing and treatment. <Estefani Valera July, - Last Filed: 08/08/23 17:41> Related Data Home medications: Home Medications Medication Instructions Recorded Confirmed multivitamin 1 tablet PO DAILY 09/07/21 10/30/21 <Estefani Valera July, - Last Filed: 08/08/23 17:41> Allergies/adverse reactions: Allergies Allergy/AdvReac Type Severity Reaction Status Date / Time No Known Allergies Allergy Verified 10/30/21 11:24 <Estefani Valera July, [employer]ICE - Last Filed: 08/08/23 17:41> Review of Systems Review of Systems: Constitutional symptoms: Denies fever Eyes: Denies eye pain Ears, Nose, Mouth, Throat: Denies sore throat or ear pain Cardiovascular: Denies chest pain Respiratory: Denies shortness of breath or cough Gastrointestinal: Denies abdominal pain Genitourinary: Denies dysuria Musculoskeletal: Denies joint pain Skin: Denies rash Neurological: Denies focal weakness <Freddy Castro MD - Last Filed: 08/08/23 19:30> [facility] Past Medical History Medical History: Medical History Infertility Migraines Missed x1 <Estefani Valera July,N - Last Filed: 08/08/23 17:41> Surgical History Surgical History: Surgical History [place] teeth removed <Estefani Valera July, - Last Filed: 08/08/23 17:41> Family History Family History: Family History Grandparent Family history of malignant neoplasm of breast Mother Family history of malignant neoplasm of breast in first degree relative Other Family history of malignant neoplasm of ovary <Estefani Valera July, - Last Filed: 08/08/23 17:41> Social History Social History: Social History Smoking status: Never smoker Alcohol intake: never Substance use: never Spiritual care concerns: No <Estefani Valera July, - Last Filed: 08/08/23 17:41> Exam Narrative: Constitutional: Generally well appearing, no acute distress Head: Atraumatic, no deformities. Eyes: Pupils equal, round, and reactive to light. Neck: Supple, no tracheal deviation, no JVD. mild tenderness over the paraspinal muscular region. Full range of motion noted. ENMT: Mucous membranes moist Cardiovascular: S1, S2 auscultated. No murmurs, rubs, or gallops. No S3/S4. Normal Distal pulses. No peripheral edema. Respiratory: Lung sounds equal. No wheezes, rales, or rhonchi. Gastrointestinal: Abdomen was soft and non-tender
[2023-08-08 18:25] VITALS: BP 188/76; PULSE 98; RESP 20; O2SAT 100
[2023-08-08 18:50] LABS: Basophils Percent Auto 0.2 % (0.2-1.2); Eosinophils Percent Auto 0.4 % (0-4.4); Hematocrit 42.4 % (37.0-47.0); Immature Granulocyte Absolute 0.01 K/mm3 (0.00-0.031); Immature Granulocyte Percent A 0.2 % (0-0.5); Lymphocytes Absolute Auto 1.07 K/mm3 (0.9-3.2); Lymphocytes Percent Auto 21.8 % (18.3-44.2); Mean Corpuscular Hemoglobin 29.2 pg (26-34); Mean Corpuscular Volume 88.5 fl (80-100); Monocytes Absolute Auto 0.2 K/mm3 (0.1-0.6); Monocytes Percent Auto 3.3 % (2.6-8.5); Neutrophils Absolute Auto 3.6 K/mm3 (1.3-6.7); Neutrophils Percent Auto 74.1 % (45.5-73.1); Platelet Count Result 188 k/mm3 (150-375); Red Blood Count 4.79 M/mm3 (4.2-5.4); Red Cell Distribution Width 13.4 % (11.5-14.5); White Blood Count 4.9 K/mm3 (4.5-10.0)
[2023-08-08 18:59] LABS: Anion Gap 8 mmol/L (4-12); Blood Urea Nitrogen 12 mg/dL (7-17); Calcium 9.1 mg/dL (8.4-10.2); Carbon Dioxide 26 mmol/L (22-30); Chloride 105 mmol/L (98-107); Estimated CRCL calculation 102 ml/min; Estimated Glomerular Filt Rate > 60; Glucose 102 mg/dL (65-110); Potassium 3.9 mmol/L (3.4-5.0); Sodium 139 mmol/L (137-145)
[2023-08-08] MEDS: KETOROLAC 15 MG/ML VIAL (*BKC) IV PUSH (19:41)
[2023-08-08] MEDS: ONDANSETRON INJ 4 MG/2 ML VIAL IV PUSH (19:41)
[2023-08-08 20:02] VITALS: BP 186/86; PULSE 86; RESP 16; TEMP 37; O2SAT 98
== END 2023-08-08 20:03 | disposition home or self-care (01) ==
PROVIDERS: Nurse Practitioner Family; Emergency Provider Emergency Medicine
DX: U07.1 COVID-19 (principal); M62.838 Other muscle spasm
CPT/HCPCS: 36415; 70450; 72125; 80048; 81025; 85025; 96374; 96375; 99284; J1885; J2405

== ENCOUNTER 2023-12-11 20:22 | Emergency (ER) | payer OTHER, SELFPAY ==
[2023-12-11 20:56] VITALS: BP 108/72; PULSE 101; RESP 20; TEMP 36.7; O2SAT 100
== END 2023-12-12 00:02 | disposition left against medical advice (07) ==
LOC: ANHED 23:23
DX: R11.2 Nausea with vomiting, unspecified (principal); R51.9 Headache, unspecified; R42 Dizziness and giddiness
CPT/HCPCS: 99199

== ENCOUNTER 2024-06-08 15:30 | Emergency (ER) | payer OTHER, SELFPAY ==
--- NOTE | ~2024-06-08 | CT_ITS ---
EXAMINATION: CT brain wo con DATE: 06/08/2024 16:09 INDICATION: Headache. TECHNIQUE: Computed tomography (CT) of the head was performed without intravenous contrast. The mA wa s adjusted according to patient size. Iterative reconstruction technique was employed. The dose-lengt h product was 605.33 mGy-cm. COMPARISON: Head CT 08/08/2023 FINDINGS: There is no intracranial hemorrhage, acute infarction, or abnormal intracranial mass lesion . The ventricles are normal in size. The paranasal sinuses are clear. The orbits are normal. The mast oid air cells are normal. IMPRESSION: 1. Normal brain. Reviewed, dictated and finalized at location B. IMPRESSION: 1. Normal brain.
[2024-06-08 15:36] VITALS: BP 101/66; PULSE 89; RESP 18; TEMP 36.4; O2SAT 100
--- NOTE | 2024-06-08 16:24 | ED.HA ---
HPI - Headache General Chief Complaint: Headache <Idalia Alonzo PA-C - Last Filed: 06/09/24 10:18> Stated Complaint: Poss Migraine-vomiting <Idalia Alonzo PA-C - Last Filed: 06/09/24 10:18> Time Seen by Provider: 06/08/24 16:24 <Idalia Alonzo PA-C - Last Filed: 06/09/24 10:18> Focused HPI: This is a 43 year old female that presents to the ER for a headache. Ongoing since she woke up this morning. Reports worsening throughout the day. Reports associated nausea and vomiting. She has not taken any pain medication for her headache. She did try an over the counter nausea medication. Reports one prior similar episode that was similar last year. Reports she used to get migraines as a child, but she had not had one since middle school. GENERAL: Well-appearing, well-nourished, and in no acute distress. HEAD: Normocephalic, atraumatic. CHEST: Clear to auscultation. ?No respiratory distress. HEART: Regular rate and rhythm.? NEURO: ?Alert and oriented x3. Patient screened in triage and initial orders placed.? ?Additional care and disposition to be based upon?diagnostic testing and treatment. <Idalia Alonzo PA-C - Last Filed: 06/09/24 10:18> History of Present Illness HPI Narrative: Agree with the HPI above. Patient has a history of a similar migraine happening about 6 months prior associated with posterior headache and nausea vomiting. Feels very similar to that event. No trauma or injury. No sick contacts. Was otherwise in her normal state of health. States that she has been having difficulty tolerating oral intake and tried an [id number] antiemetic without any help. <Andrea Galloway MD - Last Filed: 06/08/24 19:18> Related Data Home Medications: Home Medications ?Medication ?Instructions ?Recorded ?Confirmed ?Last Taken ?Type multivitamin 1 tablet PO DAILY 09/07/21 12/18/23 Unknown History cholecalciferol (vitamin D3) 25 25 mcg PO DAILY 12/18/23 12/18/23 Unknown History mcg (1,000 unit) capsule <Idalia Alonzo PA-C - Last Filed: 06/09/24 10:18> Allergies/Adverse Reactions: Allergies Allergy/AdvReac Type Severity Reaction Status Date / Time No Known Allergies Allergy Verified 06/08/24 15:31 <Idalia Alonzo PA-C - Last Filed: 06/09/24 10:18> Review of Systems Review of Systems: As reviewed above in HPI <Andrea Galloway MD - Last Filed: 06/08/24 19:18> PMFSH Past Medical History Medical History: Medical History Missed x1 Infertility Migraines <Idalia Alonzo PA-C - Last Filed: 06/09/24 10:18> Surgical History Surgical History: Surgical History [place] teeth removed <CARMELA Hdez Last Filed: 06/09/24 10:18> Family History Family History: Family History Grandparent Family history of malignant neoplasm of breast Mother Family history of malignant neoplasm of breast in first degree relative Other Family history of malignant neoplasm of ovary <Idalia Alonzo PA-C - Last Filed: 06/09/24 10:18> Social History Social History: Social History Smoking status: Never smoker Alcohol intake: never Substance use: never Spiritual care concerns: No <CARMELA Hdez Last Filed: 06/09/24 10:18> Exam Narrative: GENERAL: [Well-appearing, well-nourished, and in no acute distress.] HEAD: [Normocephalic, atraumatic.] EYES: [PERRLA and EOMI.] ENT: Nares clear, no rhinorrhea or epistaxis. Mucous membranes moist. NECK: Supple. CHEST: [Clear to auscultation. No respiratory distress.] HEART: [Regular rate and rhythm]. No murmur heard. [Normal peripheral pulses.] ABDOMEN: [Soft, nondistended], [nontender], [No rigidity or guarding] EXTREMITIES: Normal range of motion. [No edema.] SKIN: Warm, dry, no rash. NEURO: [No focal deficits]. Alert and oriented [x3.] PSYCH: [Normal mood and affect.] <Andrea Galloway MD - Last Filed: 06/08/24 19:18> Course Vital Signs Vital signs: Vital Signs Temperature 97.6 F 06/08/24 15:36 Pulse Rate 89 06/08/24 15:36 Respiratory Rate 18 06/08/24 15:36 Blood Pressure 101/66 06/08/24 15:36 Pulse Oximetry 100 06/08/24 15:36 Temperature 97.6 F 06/08/24 19:26 Pulse Rate 77 06/08/24 19:26 Respiratory Rate 15 06/08/24 19:26 Blood Pressure 104/64 06/08/24 19:26 Pulse Oximetry 100 06/08/24 19:26 <Idalia Alonzo PA-C - Last Filed: 06/09/24 10:18> Vital Signs Temperature 97.6 F 06/08/24 15:36 Pulse Rate 89 06/08/24 15:36 Respiratory Rate 18 06/08/24 15:36 Blood Pressure 101/66 06/08/24 15:36 Pulse Oximetry 100 06/08/24 15:36 Temperature 97.6 F 06/08/24 19:26 Pulse Rate 77 06/08/24 19:26 Respiratory Rate 15 06/08/24 19:26 Blood Pressure 104/64 06/08/24 19:26 Pulse Oximetry 100 06/08/24 19:26 <Andrea Galloway MD - Last Filed: 06/08/24 19:18> MDM - Headache MDM Narrative Medical decision making narrative: 43-year-old otherwise healthy female presenting to the emergency department for evaluation of a migraine headache associated with nausea and vomiting. She has similar migraine headache several months ago with similar or including nauseousness with several rounds of vomiting. She states this feels very similar and has a childhood history of migraines but has been asymptomatic for many years. Denies any trauma, injury or falls. No fever chills. She has normal vital signs when tachycardia, fever, hypoxia. Unremarkable examination otherwise well-appearing. Suspicion presently is for a migraine headache, tension headache, cluster headache, cephalgia otherwise. Low suspicion intracranial process but with nausea and vomiting associated with the headache occult mass cannot be excluded. CT of the head was obtained as well as CBC, BMP. Patient will be treated with a cocktail medications including Compazine, diphenhydramine, normal saline, Toradol. Patient was frequent re-evaluated. Patient CT scan shows no acute process, CBC and CMP are unremarkable. Patient re-evaluated with symptomatic improvement and no longer having headache or any symptoms. She remained hemodynamically stable, safe and appropriate for discharge home with outpatient follow-up and return precautions. She is not presently of a PCP so I referred her to the [facility] here as well as provider return precautions. She felt comfortable with this and safely discharged home at this time. <Andrea Galloway MD - Last Filed: 06/08/24 19:18> Medical Records Attestation: I reviewed the patient's medical records. <Andrea Galloway MD - Last Filed: 06/08/24 19:18> Lab Data Attestation: I reviewed the patient's lab results. <Andrea Galloway MD - Last Filed: 06/08/24 19:18> Result diagrams: 06/08/24 17:19 06/08/24 17:19 <Idalia Alonzo PA-C - Last Filed: 06/09/24 10:18> Labs: Lab Results 06/08/24 Range/Units 17:19 WBC 5.1 (4.5-10.0) K/mm3 RBC 4.25 (4.2-5.4) M/mm3 Hgb 12.1 (12.0-15.0) g/dL Hct 37.5 (37.0-47.0) % MCV 88.2 (80-100) fl MCH 28.5 (26-34) pg MCHC 32.3 (32-36) g/dl RDW 13.3 (11.5-14.5) % Plt Count 166 (150-375) k/mm3 MPV 9.5 (7.4-10.4) fl Immature Gran % (Auto) 0.2 (0-0.5) % Neut % (Auto) 84.3 H (45.5-73.1) % Lymph % (Auto) 13.3 L (18.3-44.2) % [place] % (Auto) 2.0 L (2.6-8.5) % Eos % (Auto) 0.0 (0-4.4) % Baso % (Auto) 0.2 (0.2-1.2) % Lymph # (Auto) 0.67 L (0.9-3.2) K/mm3 [place] # (Auto) 0.1 (0.1-0.6) K/mm3 Eos # (Auto) 0.0 (0-0.3) K/mm3 Baso # (Auto) 0.0 (0.0-0.1) K/mm3 Abs Immat Gran (auto) 0.01 (0.00-0.031) K/mm3 Absolute Neuts (auto) 4.3 (1.3-6.7) K/mm3 Absolute Nucleated RBC 0.000 (0.0-0.012) K/mm3 Nucleated RBC % 0.0 (0.0-0.2) % Sodium 140 (137-145) mmol/L Potassium 3.7 (3.4-5.0) mmol/L Chloride 105 (98-107) mmol/L Carbon Dioxide 22 (22-30) mmol/L Anion Gap 13 H (4-12) mmol/L BUN 11 (7-17) mg/dL Creatinine 0.62 L (0.7-1.0) mg/dL Estim Creat Clear Calc 95 ml/min Estimated GFR > 60 (59 - ) Glucose 96 (65-110) mg/dL Calcium 8.7 (8.4-10.2) mg/dL <Idalia Alonzo PA-C - Last Filed: 06/09/24 10:18> Lab Results 06/08/24 Range/Units 17:19 WBC 5.1 (4.5-10.0) K/mm3 RBC 4.25 (4.2-5.4) M/mm3 Hgb 12.1 (12.0-15.0) g/dL Hct 37.5 (37.0-47.0) % MCV 88.2 (80-100) fl MCH 28.5 (26-34) pg MCHC 32.3 (32-36) g/dl RDW 13.3 (11.5-14.5) % Plt Count 166 (150-375) k/mm3 MPV 9.5 (7.4-10.4) fl Immature Gran % (Auto) 0.2 (0-0.5) % Neut % (Auto) 84.3 H (45.5-73.1) % Lymph % (Auto) 13.3 L (18.3-44.2) % [place] % (Auto) 2.0 L (2.6-8.5) % Eos % (Auto) 0.0 (0-4.4) % Baso % (Auto) 0.2 (0.2-1.2) % Lymph # (Auto) 0.67 L (0.9-3.2) K/mm3 [place] # (Auto) 0.1 (0.1-0.6) K/mm3 Eos # (Auto) 0.0 (0-0.3) K/mm3 Baso # (Auto) 0.0 (0.0-0.1) K/mm3 Abs Immat Gran (auto) 0.01 (0.00-0.031) K/mm3 Absolute Neuts (auto) 4.3 (1.3-6.7) K/mm3 Absolute Nucleated RBC 0.000 (0.0-0.012) K/mm3 Nucleated RBC % 0.0 (0.0-0.2) % Sodium 140 (137-145) mmol/L Potassium 3.7 (3.4-5.0) mmol/L Chloride 105 (98-107) mmol/L Carbon Dioxide 22 (22-30) mmol/L Anion Gap 13 H (4-12) mmol/L BUN 11 (7-17) mg/dL Creatinine 0.62 L (0.7-1.0) mg/dL Estim Creat Clear Calc 95 ml/min Estimated GFR > 60 (59 - ) Glucose 96 (65-110) mg/dL Calcium 8.7 (8.4-10.2) mg/dL <Andrea Galloway MD - Last Filed: 06/08/24 19:18> Imaging Data Attestation: I personally reviewed and interpreted this imaging study as follows: <Andrea Galloway MD - Last Filed: 06/08/24 19:18> My impression: Impressions Head CT 06/08/24 16:10 IMPRESSION: 1. Normal brain. <Andrea Galloway MD - Last Filed: 06/08/24 19:18> Critical Care Time Critical Care Time Critical Care Time: No <Idalia Alonzo PA-C - Last Filed: 06/09/24 10:18> Discharge Plan Discharge Clinical Impression: Headache, migraine Qualifiers: Migraine type: unspecified Status migrainosus presence: without status migrainosus Intractability: not intractable Qualified Code(s): G43.909 - Migraine, unspecified, not intractable, without status migrainosus <Idalia Alonzo PA-C - Last Filed: 06/09/24 10:18> Patient Disposition: Home, Self-Care <Idalia Alonzo PA-C - Last Filed: 06/09/24 10:18> Condition: Stable <Idaila Alonzo PA-C - Last Filed: 06/09/24 10:18> Instructions: Antibiotic Form, Migraine Headache (ED) <Idalia Alonzo PA-C - Last Filed: 06/09/24 10:18> Additional Instructions: Your symptoms are very consistent with a migraine headache, your CT scan shows nothing concerning and there are no apparent masses or lesions. Your laboratory studies are all unremarkable and normal. Follow-up with a regular PCP which will refer you to. Return with any new or worsening concerns such as recurrence your headache, intractable nausea, vision changes, weakness or neuropathy. <Idalia Alonzo PA-C - Last Filed: 06/09/24 10:18> Patient Language: Tam[place] <Idalia Alonzo PA-C - Last Filed: 06/09/24 10:18> Prescriptions: No Action cholecalciferol (vitamin D3) 25 mcg (1,000 unit) capsule 25 mcg PO DAILY multivitamin Tablet 1 tablet PO DAILY <Idalia Alonzo PA-C - Last Filed: 06/09/24 10:18> Follow-up/Referrals: UNKNOWN,DOCTOR [Non-Staff] - Angelic Garcia DO [Physician] - 1 Week (Establish PCP care) <Idalia Alonzo PA-C - Last Filed: 06/09/24 10:18> Time of Disposition: 19:17 <Idalia Alonzo PA-C - Last Filed: 06/09/24 10:18> 19:17 <Andrea Galloway MD - Last Filed: 06/08/24 19:18>
[2024-06-08 17:20] VITALS: BP 100/68; PULSE 67; RESP 16; O2SAT 100
[2024-06-08 17:37] LABS: Basophils Percent Auto 0.2 % (0.2-1.2); Hematocrit 37.5 % (37.0-47.0); Hemoglobin 12.1 g/dL (12.0-15.0); Immature Granulocyte Absolute 0.01 K/mm3 (0.00-0.031); Immature Granulocyte Percent A 0.2 % (0-0.5); Lymphocytes Absolute Auto 0.67 K/mm3 (0.9-3.2); Lymphocytes Percent Auto 13.3 % (18.3-44.2); Mean Corpuscular HGB Conc 32.3 g/dl (32-36); Mean Corpuscular Hemoglobin 28.5 pg (26-34); Mean Corpuscular Volume 88.2 fl (80-100); Mean Platelet Volume 9.5 fl (7.4-10.4); Monocytes Absolute Auto 0.1 K/mm3 (0.1-0.6); Neutrophils Absolute Auto 4.3 K/mm3 (1.3-6.7); Neutrophils Percent Auto 84.3 % (45.5-73.1); Platelet Count Result 166 k/mm3 (150-375); Red Blood Count 4.25 M/mm3 (4.2-5.4); Red Cell Distribution Width 13.3 % (11.5-14.5); White Blood Count 5.1 K/mm3 (4.5-10.0)
[2024-06-08] MEDS: SODIUM CHLORIDE 0.9% IV 1,000 ML 999 ML IV CONT (17:38)
[2024-06-08] MEDS: KETOROLAC 15 MG/ML VIAL (*BKC) IV PUSH (17:40)
[2024-06-08] MEDS: diphenhydrAMINE HCl INJ 50 MG/ML VIAL 25 MG IV PUSH (17:41)
[2024-06-08] MEDS: PROCHLORPERAZINE EDISYLATE 10 MG/2 ML VIAL IV PUSH (17:47)
[2024-06-08 17:48] LABS: Anion Gap 13 mmol/L (4-12); Blood Urea Nitrogen 11 mg/dL (7-17); Calcium 8.7 mg/dL (8.4-10.2); Carbon Dioxide 22 mmol/L (22-30); Chloride 105 mmol/L (98-107); Estimated CRCL calculation 95 ml/min; Estimated Glomerular Filt Rate > 60; Glucose 96 mg/dL (65-110); Potassium 3.7 mmol/L (3.4-5.0); Sodium 140 mmol/L (137-145)
--- OUTSIDE RECORDS SUMMARY | 2024-06-08 18:10 | XMS_ITS | Clinical Summary ---
Author Organization [facility] Administrative Offices Address [address] [place] [address] Care Team Providers Care Machine Engraver Name Role Phone Maxime Bal MD Primary Care Provider [phone] Allergies No known active allergies Medications multivitamin (DAILY-MP) tablet Take 1 Tablet by mouth daily. Active MICROGESTIN FE 1.5/30, 28, 1.5 mg-30 mcg (21)/75 mg (7) tablet Take 1 Tablet by mouth daily. 84 Tablet 3 02/24/2018 Active Active Problems Problem Noted Date Diagnosed Date Increased risk of breast cancer 10/27/2016 Overview (10/27/2016): Greater than 20% lifetime risk of developing breast cancer BRCA1 negative 10/27/2016 Overview (10/27/2016): Negative. Maternal family history of HBOC, mother with a deleterious BRCA1 mutation. The patient underwent the [employer] my risk genetic testing for hereditary cancer syndromes and tested negative for any deleterious mutations in all 28 genes tested. This testing included genes responsible for HBOC, Irvin syndrome, as well as most other common hereditary cancer syndromes. Family history of malignant neoplasm of breast in relative diagnosed when younger than 45 years of age 0609/26/2016 Family history of ovarian cancer 09/26/2016 Family history of malignant neoplasm of prostate in father 09/26/2016 Family history of melanoma 09/26/2016 Encounter for genetic counseling and testing Encounter for screening for human papillomavirus (HPV) 01/11/2016 Screen for sexually transmitted diseases 016 Family History Medical History Relation Name Comments Healthy Brother Cancer Father Prostate cancer , Edson 7 Prostate Cancer Father Ovarian Cancer Maternal Aunt 1 Cancer Maternal Aunt 2 Leukemia Healthy Maternal Aunt 3 Cancer Maternal Grandfather Head an d neck cancer Breast Cancer Maternal Grandmother Bilate ral breast cancer 60 and 63 Breast Cancer Mother Bilateral stacy st cancer 44 and 62 Melanoma Other 1 Maternal great-grandmoth Ovarian Cancer Other 2 Maternal great aunt Breast Cancer Paternal Grandmother Bilate ral breast age 40 and 60 Healthy Sister Relation Name Status Comments Brother Alive Father Alive Maternal Aunt 1 Maternal Aunt 2 Alive Maternal Aunt 3 Alive Maternal Grandfather Alive Maternal Grandmother Mother Alive Other 1 Maternal great-grandmoth Other 2 Maternal great aunt Paternal Grandfather Paternal Grandmother Sister Alive Social History Tobacco Use Types Packs/Day Years Used Date Smoking Tobacco: Never Smokeless Tobacco: Never Alcohol Use Standard Drinks/Week Comments Yes 0 (1 standard drink = 0.6 oz pur e alcohol) ONCE A WEEK Comments No Sex and Gender Information Value Date Recorded Sex Assigned at Not on file Legal Sex Female 12:50 PM CDT Gender Identity Not on file Sexual Orientation Not on file Last Filed Vital Signs Vital Sign Reading Time Taken Comments Blood Pressure 114/72 02/24/2018 1:38 PM DROP SHIPMENT CLERK Pulse 64 09/26/2016 10:20 AM CDT Temperature 36.4 C (97.6 F) 09/26/2016 10:20 AM CDT Respiratory Rate 12 09/26/2016 10:20 AM CDT Oxygen Saturation - - Inhaled Oxygen Concentration - - Weight 57.2 kg (126 lb) 02/24/2018 1:38 PM DROP SHIPMENT CLERK Height 170.2 cm (5' 7 ) 02/24/2018 1:38 PM DROP SHIPMENT CLERK Body Mass Index 19.73 02/24/2018 1:38 PM DROP SHIPMENT CLERK Plan of Treatment Health Maintenance Due Date Last Done Comments DTAP/TDAP/TD VACCINES (1 - Tdap) 2001 HEPATITIS B VACCINES (1 of 3 - 19+ 3-dose series) 2001 CERVICAL CANCER SCREENING 02/24/2021 02/24/2018 BREAST CANCER SCREENING 2022 INFLUENZA VACCINE (#1) 2023 HPV VACCINES Aged Out No longer eligi ble based on patient's age to complete this topic PNEUMOCOCCAL VACCINE 0-49 YEARS Aged Out No longer eligible based on patient's age to complete this topic Procedures Procedure Name Priority Date/Time Associated Diagnosis Comments CERV/VAG CYTO AGE BASED SCREEN PAP Routine 02/24/2018 2:28 PM DROP SHIPMENT CLERK Cervical smear, as part of routine gynecological examination from Last 3 Months or Most Recently Relevant to Health Maintenance Results * CERV/VAG CYTO AGE BASED SCREEN PAP (02/24/2018 2:28 PM DROP SHIPMENT CLERK) COMMENT (PAP): SEE COMMENT 12:17 PM DROP SHIPMENT CLERK [facility] Comment: This order for age-based cervical cancer and STI screening follows ACOG guidelines(PB 168, 140, [id number]). See individual assays for performing site location. CLINICAL INFORMATION Routine exam 02/28/2018 12:17 PM DROP SHIPMENT CLERK [facility] LAST MENSTRUAL PERIOD [id number] 02/28/2018 12:17 PM DROP SHIPMENT CLERK [facility] PREV PAP: [id number] 02/28/2018 12:17 PM DROP SHIPMENT CLERK [facility] PREV BX: INFORMATION NOT PROVIDED 02/28/2018 12:17 PM DROP SHIPMENT CLERK [facility] SOURCE Endocervix 02/28/2018 12:17 PM DROP SHIPMENT CLERK [facility] ADEQUACY: SEE COMMENT 02/28/2018 12:17 PM DROP SHIPMENT CLERK [facility] Comment: Satisfactory for evaluation. Endocervical/transformation zone component present. PAP INTERP Negative for intraepithelial lesion or malignancy. 02/28/2018 12:17 PM DROP SHIPMENT CLERK [facility] COMMENT This Pap test has been evaluated with computer assisted technology. 02/28/2018 12:17 PM DROP SHIPMENT CLERK [facility] MICROBIOLOGY QUALITY CONTROL TECHNICIAN: SEE COMMENT 2017 12:17 PM DROP SHIPMENT CLERK [facility] Comment: LMT, CT(ASCP) CT screening location: [place] [address] [place] [address] EXPLANATORY NOTE SEE COMMENT 018 12:17 PM DROP SHIPMENT CLERK [facility] Comment: EXPLANATORY NOTE: The Pap is a screening test for cervical cancer. It is not a diagnostic test and is subject to false negative and false positive results. It is most reliable when a satisfactory sample, regularly obtained, is submitted with relevant clinical findings and history, and when the Pap result is evaluated along with historic and current clinical information. HPV E6/E7 Not Detected Not Detected 02/28/2018 12:17 PM DROP SHIPMENT CLERK [facility] Comment: This test was performed using the [employer] HPV Assay ([employer] This assay detects E6/E7 viral messenger RNA (mRNA) from 14 high-risk HPV types (16,18,31,33,35,39,45,51,52,56,58,59,66,68). The analytical performance characteristics of this assay have been determined by [facility]. The modifications have not been cleared or approved by the FDA. This assay has been validated pursuant to the CLIA regulations and is used for clinical purposes. Genital SWAB OF ENDOCERVIX / Unknown Collection / Unknown 02/24/2018 2:28 PM DROP SHIPMENT CLERK 02/24/2018 8:22 PM DROP SHIPMENT CLERK Narrative [facility] - 02/28/2018 12:17 PM DROP SHIPMENT CLERK Performing Organization Information: Site ID: [place] [facility] Address: [address] [place] [address] Director: Cj Castillo D.O., MPH Site ID: [place] [facility] Address: [address] [place] [address] Director: Timo Maldonado June Derrick ELDRIDGE PATHOLOGY/CYTOLOGY ORDERABLES Final Result [facility] from Last 3 Months or Most Recently Relevant to Health Maintenance Insurance [employer] [place] [facility] OPEN [facility] Address: [facility] [id number] [place] [address] Care Teams Machine Engraver Relationship Specialty Start Date End Date Maxime Bal MD [address] [facility] [address] [place] [phone] (work) PCP - General Obstetrics and Gynecology 10/10/20
--- OUTSIDE RECORDS SUMMARY | 2024-06-08 19:05 | XMS_ITS | Clinical Summary ---
Author Organization [facility] Administrative Offices Address [address] [place] [address] Care Team Providers Care Chemistry Technician Name Role Phone Maxime Bal MD Primary Care Provider [phone] Allergies No known active allergies Medications multivitamin [...] deleterious BRCA1 mutation. The patient underwent the [employer] my risk genetic testing for hereditary cancer [...] Comments Blood Pressure 114/72 02/24/2018 1:38 PM CREAM GATHERER Pulse 64 09/26/2016 10:20 AM CDT Temperature 36.4 C (97.6 F) 09/26/2016 10:20 AM CDT Respiratory Rate 12 09/26/2016 10:20 AM CDT Oxygen Saturation - - Inhaled Oxygen Concentration - - Weight 57.2 kg (126 lb) 02/24/2018 1:38 PM CREAM GATHERER Height 170.2 cm (5' 7 ) 02/24/2018 1:38 PM CREAM GATHERER Body Mass Index 19.73 02/24/2018 1:38 PM CREAM GATHERER Plan of Treatment Health Maintenance Due Date [...] BASED SCREEN PAP Routine 02/24/2018 2:28 PM CREAM GATHERER Cervical smear, as part of routine gynecological examination from Last 3 Months or Most Recently Relevant to Health Maintenance Results * CERV/VAG CYTO AGE BASED SCREEN PAP (02/24/2018 2:28 PM CREAM GATHERER) COMMENT (PAP): SEE COMMENT 12:17 PM CREAM GATHERER [facility] Comment: This order for age-based cervical cancer and STI screening follows ACOG guidelines(PB 168, 140, [id number]). See individual assays for performing site location. CLINICAL INFORMATION Routine exam 02/28/2018 12:17 PM CREAM GATHERER [facility] LAST MENSTRUAL PERIOD [id number] 02/28/2018 12:17 PM CREAM GATHERER [facility] PREV PAP: [id number] 02/28/2018 12:17 PM CREAM GATHERER [facility] PREV BX: INFORMATION NOT PROVIDED 02/28/2018 12:17 PM CREAM GATHERER [facility] SOURCE Endocervix 02/28/2018 12:17 PM CREAM GATHERER [facility] ADEQUACY: SEE COMMENT 02/28/2018 12:17 PM CREAM GATHERER [facility] Comment: Satisfactory for evaluation. Endocervical/transformation zone component present. PAP INTERP Negative for intraepithelial lesion or malignancy. 02/28/2018 12:17 PM CREAM GATHERER [facility] COMMENT This Pap test has been evaluated with computer assisted technology. 02/28/2018 12:17 PM CREAM GATHERER [facility] LINING PRESSER: SEE COMMENT 2017 12:17 PM CREAM GATHERER [facility] Comment: LMT, CT(ASCP) CT screening location: [place] [address] [place] [address] EXPLANATORY NOTE SEE COMMENT 018 12:17 PM CREAM GATHERER [facility] Comment: EXPLANATORY NOTE: The Pap [...] Not Detected Not Detected 02/28/2018 12:17 PM CREAM GATHERER [facility] Comment: This test was performed using the [employer] HPV Assay ([employer].). This assay detects E6/E7 viral messenger RNA (mRNA) from 14 high-risk HPV types (16,18,31,33,35,39,45,51,52,56,58,59,66,68). The analytical performance characteristics of this assay have been determined by [employer]. The modifications have not been cleared or approved by the FDA. This assay has been validated pursuant to the CLIA regulations and is used for clinical purposes. Genital SWAB OF ENDOCERVIX / Unknown Collection / Unknown 02/24/2018 2:28 PM CREAM GATHERER 02/24/2018 8:22 PM CREAM GATHERER Narrative [facility] - 02/28/2018 12:17 PM CREAM GATHERER Performing Organization Information: Site ID: [place] [facility] Address: [address] [place] [address] Director: Cj Castillo D.O., MPH Site ID: [place] [facility] Address: [address] [place] [address] Director: Timo Maldonado June Derrick ELDRIDGE PATHOLOGY/CYTOLOGY ORDERABLES Final Result [facility] from Last 3 Months or Most Recently Relevant to Health Maintenance Insurance [employer] [facility] [place] [facility] [place] Address[facility] [address] [place] [address] Care Teams Chemistry Technician Relationship Specialty Start Date End Date Maxime Bal MD [address] [facility] [address] [place] [phone] (work) PCP - General Obstetrics and Gynecology 10/10/20
[2024-06-08 19:26] VITALS: BP 104/64; PULSE 77; RESP 15; TEMP 36.4; O2SAT 100
== END 2024-06-08 19:29 | disposition home or self-care (01) ==
PROVIDERS: Emergency Provider Student in an Organized Health Care Education/Training Program
DX: G43.909 Migraine, unspecified, not intractable, without status migrainosus (principal)
CPT/HCPCS: 36415; 70450; 80048; 85025; 96361; 96374; 96375; 99284; J0780; J1200; J1885; J7030

== ENCOUNTER 2025-02-18 15:51 | Outpatient (CLI) | payer OTHER, SELFPAY ==
--- NOTE | ~2025-02-18 | US_ITS ---
EXAMINATION: Ultrasound, limited, anterior abdominal wall: DATE: 02/18/2025. INDICATION: Possible umbilical hernia. TECHNIQUE: Limited ultrasound examination of the abdominal wall at the area of interest with Doppler.. COMPARISON: No prior imaging studies of the abdomen are available for comparison. FINDINGS: Examination of the area of interest around the umbilicus shows no cystic mass, solid mass. No definite evidence of herniation is seen. IMPRESSION: 1. No ultrasound definable focal abnormality in the area of interest in the midabdomen around the umbilicus. 2. If symptoms are significant and persistent further imaging can be considered with CT scan. Reviewed, dictated and finalized at location T. SERVICE ASSISTANT IMPRESSION: 1. No ultrasound definable focal abnormality in the area of interest in the mid abdomen around the umbilicus. 2. If symptoms are significant and persistent further imaging can be considered with CT scan.
--- OUTSIDE RECORDS SUMMARY | 2025-02-18 18:15 | XMS_ITS | Clinical Summary ---
Author Organization [facility] Administrative Offices Address [address] [place] [address] Care Team Providers Care Fretted Instrument Inspector Name Role Phone Maxime Bal MD Primary Care Provider [phone] Allergies No known active allergies Medications multivitamin [...] deleterious BRCA1 mutation. The patient underwent the [employer] my risk genetic testing for hereditary cancer [...] Comments Blood Pressure 114/72 02/24/2018 1:38 PM RISK CONTROL FIELD REPRESENTATIVE Pulse 64 09/26/2016 10:20 AM CDT Temperature 36.4 C (97.6 F) 09/26/2016 10:20 AM CDT Respiratory Rate 12 09/26/2016 10:20 AM CDT Oxygen Saturation - - Inhaled Oxygen Concentration - - Weight 57.2 kg (126 lb) 02/24/2018 1:38 PM RISK CONTROL FIELD REPRESENTATIVE Height 170.2 cm (5' 7) 02/24/2018 1:38 PM RISK CONTROL FIELD REPRESENTATIVE Body Mass Index 19.73 02/24/2018 1:38 PM RISK CONTROL FIELD REPRESENTATIVE Plan of Treatment Health Maintenance Due Date Last Done Comments DTAP/TDAP/TD VACCINES (1 - Tdap) 2001 HEPATITIS B VACCINES (1 of 3 - 19+ 3-dose series) 10/2001 HPV VACCINES (1 - 3-dose SCDM series) 2009 PAP SMEAR 02/24/2021 02/24/2018 BREAST CANCER SCREENING 2022 CERVICAL CANCER SCREENING 02/24/2023 HPV/Cotest (21-29) 02/24/2023 02/24/2018 HPV/Cotest (30-65) 02/24/2023 02/24/2018 INFLUENZA VACCINE (#1) 2024 Procedures Procedure Name Priority Date/Time Associated Diagnosis Comments CERV/VAG CYTO AGE BASED SCREEN PAP Routine 02/24/2018 2:28 PM RISK CONTROL FIELD REPRESENTATIVE Cervical smear, as part of routine gynecological examination from Last 3 Months or Most Recently Relevant to Health Maintenance Results * CERV/VAG CYTO AGE BASED SCREEN PAP (02/24/2018 2:28 PM RISK CONTROL FIELD REPRESENTATIVE) COMMENT (PAP): SEE COMMENT 12:17 PM RISK CONTROL FIELD REPRESENTATIVE [facility] Comment: This order for age-based cervical cancer and STI screening follows ACOG guidelines(PB 168, 140, [id number]). See individual assays for performing site location. CLINICAL INFORMATION Routine exam 02/28/2018 12:17 PM RISK CONTROL FIELD REPRESENTATIVE [facility] LAST MENSTRUAL PERIOD [id number] 02/28/2018 12:17 PM RISK CONTROL FIELD REPRESENTATIVE [facility] PREV PAP: [id number] 02/28/2018 12:17 PM RISK CONTROL FIELD REPRESENTATIVE [facility] PREV BX: INFORMATION NOT PROVIDED 02/28/2018 12:17 PM RISK CONTROL FIELD REPRESENTATIVE [facility] SOURCE Endocervix 02/28/2018 12:17 PM RISK CONTROL FIELD REPRESENTATIVE [facility] ADEQUACY: SEE COMMENT 02/28/2018 12:17 PM RISK CONTROL FIELD REPRESENTATIVE [facility] Comment: Satisfactory for evaluation. Endocervical/transformation zone component present. PAP INTERP Negative for intraepithelial lesion or malignancy. 02/28/2018 12:17 PM RISK CONTROL FIELD REPRESENTATIVE [facility] COMMENT This Pap test has been evaluated with computer assisted technology. 02/28/2018 12:17 PM RISK CONTROL FIELD REPRESENTATIVE [facility] GREENS PLANTER: SEE COMMENT 2017 12:17 PM RISK CONTROL FIELD REPRESENTATIVE [facility] Comment: LMT, CT(ASCP) CT screening location: [place] [address] [place] [address] EXPLANATORY NOTE SEE COMMENT 12:17 PM RISK CONTROL FIELD REPRESENTATIVE [facility] Comment: EXPLANATORY NOTE: The Pap [...] Not Detected Not Detected 02/28/2018 12:17 PM RISK CONTROL FIELD REPRESENTATIVE [facility] Comment: This test was performed using the [employer] HPV Assay ([employer] This assay detects E6/E7 viral messenger RNA (mRNA) from 14 high-risk HPV types (16,18,31,33,35,39,45,51,52,56,58,59,66,68). The analytical performance characteristics of this assay have been determined by [employer]. The modifications have not been cleared or approved by the FDA. This assay has been validated pursuant to the CLIA regulations and is used for clinical purposes. Genital SWAB OF ENDOCERVIX / Unknown Collection / Unknown 02/24/2018 2:28 PM RISK CONTROL FIELD REPRESENTATIVE 02/24/2018 8:22 PM RISK CONTROL FIELD REPRESENTATIVE Narrative [facility] - 02/28/2018 12:17 PM RISK CONTROL FIELD REPRESENTATIVE Performing Organization Information: Site ID: [place] [facility] Address: [address] [place] [address] Director: Cj Castillo D.O., MPH Site ID: [place] [facility] Address: [address] [place] [address] Director: Timo Maldonado june Derrick ELDRIDGE PATHOLOGY/CYTOLOGY ORDERABLES Final Result Performing Organization Address City/State/[facility] Co de Phone Number [facility] from Last 3 Months or Most Recently Relevant to Health Maintenance Insurance [facility] [employer] Care Teams Fretted Instrument Inspector Relationship Specialty Start Date End Date Maxime Bal MD [address] [facility] [address] [facility] [address] [place] [address] PCP - General Obstetrics and Gynecology 10/10/20
== END 2025-02-18 15:52 | disposition home or self-care (01) ==
PROVIDERS: Visit Provider Surgery
DX: K42.9 Umbilical hernia without obstruction or gangrene (principal)
CPT/HCPCS: 76705